=== PATIENT | female | born 1950 | race Caucasian/White ===

== ENCOUNTER → 2017-01-06 | Outpatient (CLI) | payer MEDICARE ==
[~2017-01-06] MED LIST: ACET-822; ASPI-383 PO; ENOX40P SQ; ESTR.3 PO; FLUO1TAB3 PO; HYDR-3580 PO; LISI10TA3 PO; MAXZTAB PO; PANT40TA3 PO; PRIL20TA2 PO; SIMV20TA PO; TRAM50 PO
[2017-01-06 09:19] LABS: AUTOMATED NEUTROPHIL # 5.5 TH/MM3 (1.8-7.7); BASOPHIL % 0.6 % (0.0-2.0); EOSINOPHIL # 0.1 TH/MM3 (0-0.4); EOSINOPHIL % 1.5 % (0.0-4.0); HEMATOCRIT 37.8 % (35.0-46.0); HEMO FLAGS DIFF FINAL; LYMPH % 19.3 % (9.0-44.0); LYMPHOCYTE # 1.5 TH/MM3 (1.0-4.8); MEAN CELL VOLUME 86.1 FL (80.0-100.0); MEAN CORPUSCULAR HEMOGLOBIN 28.1 PG (27.0-34.0); MEAN CORPUSCULAR HGB CONC 32.6 % (32.0-36.0); MONO % 7.5 % (0.0-8.0); NEUT % 71.1 % (16.0-70.0); PLATELET COUNT 302 TH/MM3 (150-450); RED CELL DISTRIBUTION WIDTH 14.2 % (11.6-17.2); WHITE BLOOD COUNT 7.7 TH/MM3 (4.0-11.0)
[2017-01-06 10:15] LABS: BICARBONATE 29.2 MEQ/L (21.0-32.0)
[2017-01-06 10:18] LABS: POTASSIUM 3.9 MEQ/L (3.5-5.1)
--- NOTE | 2017-01-07 16:43 | EKG ---
Date Performed: 01/06/2017 Time Performed: 09:10:02 PTAGE: 66 years EKG: Sinus rhythm MARKED LEFT AXIS DEVIATION Since previous tracing, no significant change noted ABNORMAL ECG PREVIOUS TRACING : 01/16/2015 09.00 DOCTOR: Carlene Harley Interpretating Date/Time 01/07/2017 16:42:34
== END ==
LOC: PHPRE 08:01
PROVIDERS: ATTEND Orthopaedic Surgery
DX: Z01.812 Encounter for preprocedural laboratory examination (principal); Z01.810 Encounter for preprocedural cardiovascular examination; R94.31 Abnormal electrocardiogram [ECG] [EKG]
CPT/HCPCS: 80048; 85025; 93005

== ENCOUNTER → 2017-01-14 | Day surgery (SDC) | payer MEDICARE ==
[~2017-01-14] VITALS: Ht 170.2 cm; Wt 72.5 kg
[~2017-01-14] MED LIST changes: +ACETAMINOPHEN/HYDROcodone 325 MG/5 MG TAB PO PRN; +BUPIVACAINE HCL PF 0.5% 30 ML VIAL ONE; +CHLORHEXIDINE GLUCONATE 2 % 1 PACK (2 CLOTHS) TOPICAL PRN; +INSULIN HUMAN REGULAR 1,000 UNITS/10 ML VIAL SQ PRN; +LACTATED RINGER'S 1000 ML INJ 1,000 ML IV SCH; +LACTATED RINGER'S 1000 ML IV PRN; +METOPROLOL TARTRATE 25 MG TAB PO PRN; +MIDAZOLAM HCL 2 MG/2 ML VIAL ONE; +MORPHINE SULFATE 4 MG/ML INJ IV PUSH PRN; +ONDANSETRON HCL 4 MG/2 ML VIAL IV PUSH PRN; +POVIDONE IODINE 5% (ANTISEPSIS KIT) 4 APPLICATIONS EACH NARE PRN; +POVIDONE IODINE 7.5% SCRUB 118 ML BOTTLE TOPICAL SCH; +SODIUM CHLORID 0.9% 500 ML IV PRN; +ceFAZolin 2 GM PREMIX 50 ML IV SCH
[2017-01-14 08:20] VITALS: PULSE 75
[2017-01-14 09:30] VITALS: BP 131/69; PULSE 79; RESP 14; TEMP 98.3; O2SAT 97
--- NOTE | 2017-01-14 12:20 | MP ---
cc: [facility] [place] DATE OF SURGERY 01/14/2017 PREOPERATIVE DIAGNOSIS Carpal tunnel syndrome right wrist. POSTOPERATIVE DIAGNOSIS Carpal tunnel syndrome right wrist. OPERATIVE PROCEDURE Endoscopic carpal tunnel release right SURGEON Dr. Thibodeaux ANESTHESIA General TECHNIQUE After induction of general anesthesia, the right upper extremity was thoroughly prepped with Hibiclens and draped in routine fashion. After application Esmarch bandage, tourniquet was inflated to 250 mmHg. A horizontal incision 2 cm long was made between the flexor carpi radialis and flexor carpi ulnaris tendons, just proximal to the distal wrist crease. Wrist placed in slight extension. Incision deepened through the subcutaneous tissue. Hemostasis obtained. Blunt dissection revealed the flexor retinaculum with appropriate retractors in place, a U-shaped flap where the retinaculum was raised based distally. A hemostat was used to enter the carpal tunnel followed by the synovial dissector followed by the scope assembly showing clear transverse fibers of the volar carpal ligament with a clear passage to pass the blade. The blade was deployed and the volar carpal ligament section, all done under direct vision away from the soft tissue structure lateral to the scope. Tourniquet was released. There was small pinpoint bleeding, but no copious bleeding and therefore the scope was withdrawn. Proximal release was carried out for a centimeter under direct vision. Hemostasis obtained by pressure. 0.5% Marcaine plain was instilled into the subcutaneous tissue proximal and distal incisions. Closure was carried out with interrupted vertical mattress 3-0 nylon sutures. Dressings applied with Xeroform, 4x4 and Sof-Rol and a volar padded fiberglass splint applied secured Cate and Hebert bandage holding the wrist in slight dorsiflexion. The patient has good circulation of the fingers. The patient tolerated the procedure well. Transfusions and complications, None Postop condition is satisfactory. PROGNOSIS Good MD TIFFANY Grant/ALISSA /8:23 AM /12:05 PM
== END | disposition home or self-care (01) ==
LOC: PHSDC 06:15
PROVIDERS: ATTEND Orthopaedic Surgery
DX: G56.00 Carpal tunnel syndrome, unspecified upper limb (principal); K21.9 Gastro-esophageal reflux disease without esophagitis
CPT/HCPCS: 01810; 29848; J0690; J2250; J7120

== ENCOUNTER 2017-02-04 10:04 | Emergency (ER) | payer MEDICARE ==
[~2017-02-04] VITALS: Ht 172.7 cm; Wt 72.0 kg
[~2017-02-04 10:04] MED LIST changes: -ACETAMINOPHEN/HYDROcodone 325 MG/5 MG TAB PO PRN; -BUPIVACAINE HCL PF 0.5% 30 ML VIAL ONE; -CHLORHEXIDINE GLUCONATE 2 % 1 PACK (2 CLOTHS) TOPICAL PRN; -ENOX40P SQ; -ESTR.3 PO; -INSULIN HUMAN REGULAR 1,000 UNITS/10 ML VIAL SQ PRN; -LACTATED RINGER'S 1000 ML INJ 1,000 ML IV SCH; -LACTATED RINGER'S 1000 ML IV PRN; -LISI10TA3 PO; -METOPROLOL TARTRATE 25 MG TAB PO PRN; -MIDAZOLAM HCL 2 MG/2 ML VIAL ONE; -MORPHINE SULFATE 4 MG/ML INJ IV PUSH PRN; -ONDANSETRON HCL 4 MG/2 ML VIAL IV PUSH PRN; -POVIDONE IODINE 5% (ANTISEPSIS KIT) 4 APPLICATIONS EACH NARE PRN; -POVIDONE IODINE 7.5% SCRUB 118 ML BOTTLE TOPICAL SCH; -PRIL20TA2 PO; -SODIUM CHLORID 0.9% 500 ML IV PRN; -TRAM50 PO; -ceFAZolin 2 GM PREMIX 50 ML IV SCH
[2017-02-04 10:05] VITALS: BP 143/82; PULSE 109; RESP 20; TEMP 99.4; O2SAT 99
[2017-02-04] MEDS ORDERED: IOHEXOL 350 MG/ML 10 ML VIAL (for RAD DIAG) IVCONTRAST ONE (10:05)
--- NOTE | 2017-02-04 10:45 | PD ---
HPI Chief Complaint: GI Complaint Time Seen by Provider: 10:45 Travel History International Travel<30 days: No Contact w/Intl Traveler<30days: No Traveled to known affect area: No History of Present Illness HPI 66-year-old female came to the emergency room with history of vomiting for past 2 days. Patient says she has not been able to keep anything down. Yesterday she vomited 4 times and today 4 times so far. She says whenever she eats or drinks comes out right away. She has had recent endoscopies where she has been diagnosed with possible gastric outlet syndrome. Her GI specialist has to do further test to see this. But patient was concerned if she was completely obstructed and hence was vomiting. Her last vomit was just before coming to the emergency room. No history of diarrhea. She has some vague diffuse abdominal pain with no aggravating or relieving factors identified. Vital signs were overall within acceptable limits. And has 2 drinks every day which could be in the form of beer, wine or hard liquor. She is on pantoprazole. [facility] Past Medical History Narrative Medical List of her past medical, surgical, social and family history is reviewed from the nursing note. Arthritis: Yes Anxiety: No Depression: Yes Cancer: No Cardiovascular Problems: Yes (mitral valve prolapse) High Cholesterol: Yes Diabetes: No Diminished Hearing: No Endocrine: No Gastrointestinal Disorders: Yes (GERD, MICROSCOPIC COLITIS) Genitourinary: No Hepatitis: No Hiatal Hernia: No Hypertension: Yes Immune Disorder: No Medical other: Yes (HIGH CHOLESTEROL) Musculoskeletal: Yes (arthritis bone spurs ddd scoliosis of the the spine) Neurologic: No Psychiatric: Yes (DEPRESSION) Reproductive: No Respiratory: No Immunizations Current: No Thyroid Disease: Yes (SMALL NODULE (MONITORING)) Ulcer: Yes Influenza Vaccination: No Past Surgical History Abdominal Surgery: No AICD: No Body Medical Devices: breast implants Cardiac Surgery: No Ear Surgery: No Endocrine Surgery: No Eye Surgery: No Genitourinary Surgery: No Gynecologic Surgery: Yes (total hysterectomy) Hysterectomy: Yes Joint Replacement: Yes (BL HIPS) Oral Surgery: Yes (sinus surgery) Pacemaker: No Thoracic Surgery: Yes (brandy breast implants) Other Surgery: Yes (UPPER ENDOSCOPY STUDIES) Social History Alcohol Use: Yes ("couple everyday") Tobacco Use: No (Quit 30 years ago ) Substance Use: No Allergies-Medications (Allergen,Severity, Reaction): Coded Allergies: ketorolac (Unverified Allergy, Severe, PERIORBITAL EDEMA, 02/04/17) vancomycin (Verified Allergy, Intermediate, Itching, 02/04/17) face turned red Comments list of her allergies reviewed from the nursing note. Reported Meds & Prescriptions Reported Meds & Active Scripts Active Zofran Odt (Ondansetron Odt) 4 Mg Tab 4 Mg SL Q6HR PRN Reported Tylenol Extra Strength (Acetaminophen) 500 Mg Tablet 2 Tab Simvastatin 20 Mg Tab 20 Mg PO DAILY Pantoprazole (Pantoprazole Sodium) 40 Mg Tab 40 Mg PO DAILY Fluoxetine (Fluoxetine HCl) 20 Mg Tab 20 Mg PO DAILY Maxzide-25 (Triamterene-Hydrochlorothiazide) 37.5-25 Mg Tab 1 Tab PO DAILY Narrative Medication List of her home medications reviewed from the nursing note. Review of Systems Except as stated in HPI: all other systems reviewed are Neg Gastrointestinal: Positive: Vomiting Physical Exam Narrative GENERAL: Awake, alert, mild distress SKIN: Focused skin assessment warm/dry. HEAD: Atraumatic. Normocephalic. EYES: Pupils equal and round. No scleral icterus. No injection or drainage. ENT: No nasal bleeding or discharge. Dry mucous membrane. NECK: Trachea midline. No JVD. CARDIOVASCULAR: Regular rate and rhythm. No murmur appreciated. RESPIRATORY: No accessory muscle use. Clear to auscultation. Breath sounds equal bilaterally. GASTROINTESTINAL: Abdomen soft, non-tender, nondistended. Hepatic and splenic margins not palpable. MUSCULOSKELETAL: No obvious deformities. No clubbing. No cyanosis. No edema. NEUROLOGICAL: Awake and alert. No obvious cranial nerve deficits. Motor grossly within normal limits. Normal speech. PSYCHIATRIC: Appropriate mood and affect; insight and judgment normal. Data Data Last Documented VS Vital Signs Date Time Temp Pulse Resp B/P (MAP) Pulse Ox O2 Delivery O2 Flow Rate FiO2 02/04/17 15:42 02/04/17 14:24 88 17 98 Room Air 02/04/17 10:05 99.4 Orders Orders Complete Blood Count With Diff (02/04/17 11:00) Comprehensive Metabolic Panel (02/04/17 11:00) Lipase (02/04/17 11:00) Prothrombin Time / Inr (Pt) (02/04/17 11:00) Urinalysis - C+S If Indicated (02/04/17 11:00) Ct Abd/Pel W Iv Contrast(Rout) (02/04/17 11:00) Iv Access Insert/Monitor (02/04/17 11:00) Ecg Monitoring (02/04/17 11:00) Oximetry (02/04/17 11:00) Sodium Chloride 0.9% Flush (Ns Flush) (02/04/17 11:00) Metoclopramide Inj (Reglan Inj) (02/04/17 11:00) Sodium Chlor 0.9% 1000 Ml Inj (Ns 1000 M (02/04/17 11:00) Alcohol (Ethanol) (02/04/17 11:00) Oral Contrast - Adult (02/04/17 11:04) Diatrizoate Liq ( Gastroview Liq) (02/04/17 11:11) Iohexol 350 Inj (Omnipaque 350 Inj) (02/04/17 10:05) Potassium Chloride (Kcl) (02/04/17 14:15) Potassium Chlor 10 Meq Premix (Kcl 10 Me (02/04/17 14:15) Ed Discharge Order (02/04/17 14:15) Labs Laboratory Tests Test 02/04/17 11:24 02/04/17 11:27 White Blood Count 5.9 TH/MM3 Red Blood Count 4.51 MIL/MM3 Hemoglobin 12.7 GM/DL Hematocrit 39.0 % Mean Corpuscular Volume 86.5 FL Mean Corpuscular Hemoglobin 28.2 PG Mean Corpuscular Hemoglobin Concent 32.5 % Red Cell Distribution Width 15.4 % Platelet Count 240 TH/MM3 Mean Platelet Volume 6.8 FL Neutrophils (%) (Auto) 82.7 % Lymphocytes (%) (Auto) 10.8 % Monocytes (%) (Auto) 6.1 % Eosinophils (%) (Auto) 0.3 % Basophils (%) (Auto) 0.1 % Neutrophils # (Auto) 4.9 TH/MM3 Lymphocytes # (Auto) 0.6 TH/MM3 Monocytes # (Auto) 0.4 TH/MM3 Eosinophils # (Auto) 0.0 TH/MM3 Basophils # (Auto) 0.0 TH/MM3 CBC Comment DIFF FINAL Differential Comment Prothrombin Time 10.0 SEC Prothromb Time International Ratio 1.0 RATIO Blood Urea Nitrogen 16 MG/DL Creatinine 0.98 MG/DL Random Glucose 99 MG/DL Total Protein 7.6 GM/DL Albumin 3.9 GM/DL Calcium Level 9.4 MG/DL Alkaline Phosphatase 74 U/L Aspartate Amino Transf (AST/SGOT) 26 U/L Alanine Aminotransferase (ALT/SGPT) 28 U/L Total Bilirubin 0.3 MG/DL Sodium Level 137 MEQ/L Potassium Level 3.0 MEQ/L Chloride Level 100 MEQ/L Carbon Dioxide Level 25.3 MEQ/L Anion Gap 12 MEQ/L Estimat Glomerular Filtration Rate 57 ML/MIN Lipase 138 U/L Ethyl Alcohol Level LESS THAN 3 MG/DL Urine Color YELLOW Urine Turbidity HAZY Urine pH 7.0 Urine Specific [place] 1.014 Urine Protein TRACE mg/dL Urine Glucose (UA) NEG mg/dL Urine Ketones NEG mg/dL Urine Occult Blood MOD Urine Nitrite NEG Urine Bilirubin NEG Urine Urobilinogen LESS THAN 2.0 MG/DL Urine Leukocyte Esterase LARGE Urine RBC 4 /hpf Urine WBC 6 /hpf Urine Squamous Epithelial Cells 3 /hpf Urine Transitional Epithelial Cells <1 /hpf Urine Bacteria RARE /hpf Urine Hyaline Casts 3 /lpf Urine Mucus FEW /lpf Microscopic Urinalysis Comment CULT NOT INDICATED MDM Medical Decision Making Medical Screen Exam Complete: Yes Emergency Medical Condition: Yes Medical Record Reviewed: Yes Differential Diagnosis Acute gastritis, gastric outlet syndrome, abdominal tumor Narrative Course 2:14 PM blood test results are back. Patient's potassium was moderately low. Rest of the blood work is within normal limit. I ordered a CT scan which has been done with oral contrast and does not show any significant acute abnormality. No gastric outlet syndrome. Patient was given Reglan initially and has not vomited any since then. I ordered for potassium replacement and to drink some Gatorade. If patient is able to keep it down she'll be discharged. I have given her instructions to follow up with her GI specialist early next week. Procedures EKG Prior to Arrival: No Diagnosis Primary Impression: Vomiting Qualified Codes: R11.2 - Nausea with vomiting, unspecified Additional Impression: Acute gastritis Qualified Codes: K29.00 - Acute gastritis without bleeding Referrals: Primary Care Physician Additional Instructions: Please follow-up with your GI specialist early next week. Return to the ER if the condition worsens or any other new concerns. Take the medication as per the prescription direction. Continue taking all the other medications including the medication for gastritis. Do not drink alcohol since his symptoms may worsen. Do not eat food that is high in acid content for example lemonade, oranges, ketchup, tomatoes, strawberries etc. Med/Other Pt SpecificInfo: Prescription(s) given Scripts Ondansetron Odt (Zofran Odt) 4 Mg Tab 4 MG SL Q6HR Y for Nausea/Vomiting, #12 TAB 0 Refills Prov: Kelly Holman MD 02/04/17 Disposition: 01 DISCHARGE HOME Condition: Stable Kelly Holman MD Feb 04, 2017 10:45
[2017-02-04] MEDS ORDERED: METOCLOPRAMIDE HCL 10 MG/2 ML VIAL IV PUSH ONE (11:00)
[2017-02-04] MEDS ORDERED: SODIUM CHLOR 0.9% 1000 ML INJ 1,000 ML IV ONE (11:00)
[2017-02-04] MEDS ORDERED: SODIUM CHLORIDE 0.9% FLUSH 10 ML FLUSH IV FLUSH PRN (11:00)
[2017-02-04] MEDS ORDERED: DIATRIZOATE MEGLUM/DIATRIZOATE SOD 9 ML CUP ONE (11:11)
[2017-02-04 11:47] LABS: AUTOMATED NEUTROPHIL # 4.9 TH/MM3 (1.8-7.7); BASOPHIL % 0.1 % (0.0-2.0); EOSINOPHIL % 0.3 % (0.0-4.0); HEMOGLOBIN 12.7 GM/DL (11.6-15.3); LYMPH % 10.8 % (9.0-44.0); LYMPHOCYTE # 0.6 TH/MM3 (1.0-4.8); MEAN CELL VOLUME 86.5 FL (80.0-100.0); MEAN CORPUSCULAR HEMOGLOBIN 28.2 PG (27.0-34.0); MEAN CORPUSCULAR HGB CONC 32.5 % (32.0-36.0); MEAN PLATELET VOLUME 6.8 FL (7.0-11.0); MONO % 6.1 % (0.0-8.0); MONOCYTE # 0.4 TH/MM3 (0-0.9); NEUT % 82.7 % (16.0-70.0); PLATELET COUNT 240 TH/MM3 (150-450); RED BLOOD COUNT 4.51 MIL/MM3 (4.00-5.30); RED CELL DISTRIBUTION WIDTH 15.4 % (11.6-17.2); WHITE BLOOD COUNT 5.9 TH/MM3 (4.0-11.0)
[2017-02-04 12:02] LABS: BACTERIA, URINE RARE /hpf; BILIRUBIN, URINE NEG (NEG); BLOOD, URINE MOD (NEG); GLUCOSE,URINE NEG (NEG); HYALINE CAST, URINE 3 /lpf (RARE); KETONE, URINE NEG (NEG); MUCUS URINE FEW /lpf (OCC); NITRITE,URINE NEG (NEG); SQUAMOUS EPITHELIAL CELL URINE 3 /hpf (0-5); TRANSITIONAL EPI CELLS, URINE <1 /hpf; URINE COLOR YELLOW (YELLW/STRAW); URINE LEUKOCYTE ESTERASE LARGE (NEG)
[2017-02-04 12:09] LABS: ALBUMIN 3.9 GM/DL (3.4-5.0); ALT (GPT) 28 U/L (10-53); AST (GOT) 26 U/L (15-37); BICARBONATE 25.3 MEQ/L (21.0-32.0); BLOOD UREA NITROGEN 16 MG/DL (7-18); CALCIUM 9.4 MG/DL (8.5-10.1); CHLORIDE 100 MEQ/L (98-107); CREATININE 0.98 MG/DL (0.50-1.00); GLOMERULAR FILTRATION RATE 57 ML/MIN (>89); GLUCOSE,RANDOM 99 MG/DL (74-106); LIPASE 138 U/L (73-393); SODIUM (NA) 137 MEQ/L (136-145)
[2017-02-04 12:11] LABS: ALKALINE PHOSPHATASE 74 U/L (45-117); TOTAL BILIRUBIN ADULT 0.3 MG/DL (0.2-1.0); TOTAL PROTEIN 7.6 GM/DL (6.4-8.2)
--- NOTE | 2017-02-04 14:01 | RADRPT ---
EXAM DATE/TIME: 02/04/2017 13:32 [place] COMPARISON: No previous studies available for comparison. INDICATIONS : Epigastric pain with vomiting. IV CONTRAST: 95 cc Omnipaque 350 (iohexol) IV ORAL CONTRAST: Prescribed oral contrast ingested. RADIATION DOSE: 9.80 CTDIvol (mGy) MEDICAL HISTORY : Cardiovascular disease. Hypertension. colitis SURGICAL HISTORY : Hysterectomy. ENCOUNTER: Initial ACUITY: 1 day PAIN SCALE: 5/10 LOCATION: upper quadrant TECHNIQUE: Volumetric scanning of the abdomen and pelvis was performed. Using automated exposure control and ad justment of the mA and/or kV according to patient size, radiation dose was kept as low as reasonably achievable to obtain optimal diagnostic quality images. DICOM format image data is available electro nically for review and comparison. FINDINGS: LOWER LUNGS: The visualized lower lungs are clear. LIVER: 2.7 cm cyst in the posterior right lobe near the dome of the liver. Additional subcentimeter hypodens ities scattered throughout the liver which are too small to fully characterize. Liver is otherwise un remarkable. Gallbladder is mildly distended but otherwise unremarkable by CT. SPLEEN: Normal size without lesion. PANCREAS: Within normal limits. KIDNEYS: There is a dominant cyst in the inferior pole the right kidney measuring 3.8 x 4.7 x 4.7 cm. Kidneys otherwise demonstrate symmetrical enhancement without evidence of hydronephrosis. ADRENAL GLANDS: Within normal limits. VASCULAR: There is no aortic aneurysm. BOWEL/MESENTERY: The stomach, small bowel, and colon demonstrate no acute abnormality. Mild sigmoid diverticulosis wi thout significant inflammatory change. Appendix is visualized and normal in appearance. There is no f ree intraperitoneal air or fluid. ABDOMINAL WALL: Within normal limits. RETROPERITONEUM: There is no lymphadenopathy. BLADDER: No wall thickening or mass. REPRODUCTIVE: Within normal limits. INGUINAL: There is no lymphadenopathy or hernia. MUSCULOSKELETAL: Bilateral hip arthroplasties in place. Levoscoliosis of the lumbar spine with associated degenerative spondylosis. CONCLUSION: 1. No acute abnormality in the abdomen or pelvis to explain patient's epigastric pain. 2. Mild sigmoid diverticulosis without significant inflammatory change to suggest diverticulitis. 3. Normal appendix. 4. Ancillary findings include multiple hepatic cysts many of which are too small to fully characteriz e, 2.7 cm right renal cyst, and levoscoliosis of the lumbar spine with associated degenerative spondy losis. Axel Brown MD on February 04, 2017 at 13:41 Board Certified Radiologist. This report was verified electronically.
[2017-02-04] MEDS ORDERED: ZOFR4TAB3 SL (14:10)
[2017-02-04] MEDS ORDERED: POTASSIUM CHLOR 10 MEQ PREMIX 100 ML IV ONE (14:15)
[2017-02-04] MEDS ORDERED: POTASSIUM CHLORIDE 20 MEQ CONTROLLED RELEASE TAB PO ONE (14:15)
[2017-02-04 14:24] VITALS: BP 137/67; PULSE 88; RESP 17; O2SAT 98
== END 2017-02-04 16:54 | disposition home or self-care (01) ==
LOC: NEPE 10:04
DX: K29.00 Acute gastritis without bleeding (principal); K57.30 Diverticulosis of large intestine without perforation or abscess without bleeding; K76.89 Other specified diseases of liver; N28.1 Cyst of kidney, acquired; M19.90 Unspecified osteoarthritis, unspecified site; I34.1 Nonrheumatic mitral (valve) prolapse; K21.9 Gastro-esophageal reflux disease without esophagitis; I10 Essential (primary) hypertension; M41.9 Scoliosis, unspecified
CPT/HCPCS: 74177; 80053; 80307; 81001; 83690; 85025; 85610; 96361; 96374; 96375; 99285; J2765; J3480; J7030; Q9963; Q9967